=== PATIENT | female | born 1955 | race American Indian/Alaskan Native ===

== ENCOUNTER 2017-08-16 09:05 | Emergency (ER) | payer MEDICAID ==
[2017-08-16 09:56] LABS: BASO % 0.5 % (0.0-2.0); EOS # 0.1 K/uL (0.0-0.7); EOS % 1.1 % (0.0-4.0); HEMOGLOBIN 12.2 g/dL (11.0-16.0); LYMPH # 2.4 K/uL (1.0-4.3); MEAN CELL VOLUME 79.4 fL (81.0-99.0); MEAN CORPUSCULAR HEMOGLOBIN 26.2 pg (27.0-31.0); MEAN PLATELET VOLUME 8.5 fL (7.2-11.7); MONO # 0.8 K/uL (0.0-0.8); MONO % 11.8 % (0.0-10.0); NEUT # 3.1 K/uL (1.8-7.0); NEUT % 48.6 % (50.0-75.0); NRBC % 0.4 % (0.0-2.0); RBC 4.66 Mil/uL (3.80-5.20); RED CELL DISTRIBUTION WIDTH 15.4 % (11.5-14.5); WHITE BLOOD COUNT 6.4 K/uL (4.8-10.8)
[2017-08-16 10:14] LABS: ALB/GLOB RATIO 1.3 (1.0-2.1); ALBUMIN 4.4 g/dL (3.5-5.0); ALT/SGPT 46 U/L (9-52); AST/SGOT 42 U/L (14-36); BLOOD UREA NITROGEN 32 mg/dL (7-17); CALCIUM 10.4 mg/dl (8.6-10.4); GFR AFRICAN-AMERICAN > 60; GFR NON-AFRICAN AMERICAN > 60
[2017-08-16 11:17] VITALS: RESP 18
--- NOTE | 2017-08-16 13:27 | C.PDOC ---
History Of Present Illness 61 y/o female, recently arrive from [facility], presents to the ER complaining of pain and swelling to neck which has been present for the past 1 week. Patient states that she has associated difficulty swallowing and feeling uncomfortable with lying down because of the swelling. Patient states that she was diagnosed with bilateral enlarged thyroid nodules. She had an US done in [facility] but there were no results. She reports losing some weight over last few weeks. Denies having nausea, vomiting, fever, chills, diarrhea, and hair loss. of note, [place] of pain and swelling to neck. Time Seen by Provider: 08/16/17 09:26 Chief Complaint (Nursing): Back Pain History Per: Patient History/Exam Limitations: no limitations Onset/Duration Of Symptoms: Days Current Symptoms Are (Timing): Still Present Severity: Moderate Past Medical History Reviewed: Historical Data, Nursing Documentation, Vital Signs Vital Signs: Last Vital Signs Temp 98 F 08/16/17 13:42 Pulse 78 08/16/17 13:42 Resp 18 08/16/17 13:42 BP 136/72 08/16/17 13:42 Pulse Ox 96 08/16/17 16:51 - Medical History PMH: HTN, Hyperthyroidism Surgical History: No Surg Hx Family History: States: No Known Family Hx - Social History Hx Alcohol Use: No Hx Substance Use: No - Immunization History Hx Tetanus Toxoid Vaccination: No Hx Influenza Vaccination: Yes Hx Pneumococcal Vaccination: No Review Of Systems Except As Marked, All Systems Reviewed And Found Negative. Constitutional: Negative for: Fever, Chills Gastrointestinal: Negative for: Nausea, Vomiting, Diarrhea Musculoskeletal: Positive for: Neck Pain Skin: Positive for: Other (swelling to neck) Physical Exam - Physical Exam Appears: Non-toxic, No Acute Distress, Other (alert, cooperative, conversational ) Skin: Normal Color, Warm, Dry Head: Atraumatic, Normacephalic Eye(s): bilateral: Normal Inspection Ear(s): Bilateral: Normal Nose: Normal Oral Mucosa: Moist Tongue: Normal Appearing Throat: Other (large lobular thyroid - visible and palpable) Neck: Supple Chest: Symmetrical Cardiovascular: Rhythm Regular Respiratory: Normal Breath Sounds, No Rales, No Rhonchi, No Wheezing Gastrointestinal/Abdominal: Normal Exam, Soft, No Tenderness, No Guarding, No Rebound Extremity: Normal ROM Neurological/Psych: Oriented x3, Normal Speech ED Course And Treatment - Laboratory Results Result Diagrams: 08/16/17 09:51 08/16/17 09:51 O2 Sat by Pulse Oximetry: 96 (RA) Pulse Ox Interpretation: Normal - CT Scan/US US- Thyroid Other Rad Studies (CT/US): Read By Radiologist, Radiology Report Reviewed CT/US Interpretation: Thyroid ultrasound. History: Enlarged thyroid. Comparison: None available. Technique: Real-time sonography was performed through the thyroid. Findings: Right lobe: 7.4 x 4.1 x 5.0 centimeters. Enlarged. Heterogeneous echotexture. Increased flow. Multiple nodules: Upper pole solid echogenic nodule measuring 9 x 6 x 9 millimeters with a few punctate internal cystic foci. Upper pole solid echogenic nodule with a few punctate internal cystic foci measuring 1.3 x 0.7 x 1.1 centimeters. Midpole solid echogenic nodule with a few punctate internal cystic foci measuring 1.1 x 0.6 x 0.9 centimeters. Thyroid isthmus is not well delineated. The presumed isthmus measures approximately 1.4 centimeters. Heterogeneous echotexture. Increased flow. Left lobe: 9.0 x 4.6 x 5.0 centimeters. Heterogeneous echotexture. Enlarged. Increased flow. Multiple nodules: Midpole solid echogenic nodule with a few punctate internal cystic foci measuring 1.7 x 1.1 x 1.6 centimeters. Midpole solid/cystic nodule measuring 1.9 x 1.4 x 2.3 centimeters with associated echogenic calcifications. Midpole solid echogenic nodule measuring 1.4 x 1.9 x 1.5 centimeters with a few punctate internal cystic foci. Lower pole solid echogenic nodule with scattered internal cystic foci as well as peripheral echogenic rim like calcifications measuring 2.7 x 2.4 x 2.8 cm. Impression: Enlarged heterogeneous multinodular thyroid gland as described above. Medical Decision Making Medical Decision Making: Plan: --Labs --US- Thyroid Updates: US - Thyroid has been reviewed. Patient has been discharged and instructed to follow up in clinic for further endocrinology work up. Disposition Counseled Patient/Family Regarding: Studies Performed, Diagnosis, Need For Followup - Disposition Referrals: [facility] [Outside] Rachel Carlson MD [Staff Provider] - Disposition: HOME/ ROUTINE Disposition Time: 13:24 Condition: GUARDED Additional Instructions: Needs referral for endocrine clinic Instructions: Hyperthyroidism (Overactive Thyroid) Forms: [facility] (E[place]ian), General Discharge Instructions - POA Present On Arrival: None - Clinical Impression Clinical Impression: Hyperthyroidism, Thyroid nodule - Scribe Statement The provider has reviewed the documentation as recorded by the Scribe Ortiz Garcia Provider Attestation: All medical record entries made by the Scribe were at my direction and personally dictated by me. I have reviewed the chart and agree that the record accurately reflects my personal performance of the history, physical exam, medical decision making, and the department course for this patient. I have also personally directed, reviewed, and agree with the discharge instructions and disposition.
[2017-08-16 13:43] VITALS: BP 136/72; PULSE 78; TEMP 98
--- NOTE | 2017-08-16 13:55 | US ---
Thyroid ultrasound History: Enlarged thyroid. Comparison: None available. Technique: Real-time sonography was performed through the thyroid. Findings: Right lobe: 7.4 x 4.1 x 5.0 centimeters. Enlarged. Heterogeneous echotexture. Increased flow. Multiple nodules: Upper pole solid echogenic nodule measuring 9 x 6 x 9 millimeters with a few punctate internal cystic foci. Upper pole solid echogenic nodule with a few punctate internal cystic foci measuring 1.3 x 0.7 x 1.1 centimeters. Midpole solid echogenic nodule with a few punctate internal cystic foci measuring 1.1 x 0.6 x 0.9 centimeters. Thyroid isthmus is not well delineated. The presumed isthmus measures approximately 1.4 centimeters. Heterogeneous echotexture. Increased flow. Left lobe: 9.0 x 4.6 x 5.0 centimeters. Heterogeneous echotexture. Enlarged. Increased flow. Multiple nodules: Midpole solid echogenic nodule with a few punctate internal cystic foci measuring 1.7 x 1.1 x 1.6 centimeters. Midpole solid/cystic nodule measuring 1.9 x 1.4 x 2.3 centimeters with associated echogenic calcifications. Midpole solid echogenic nodule measuring 1.4 x 1.9 x 1.5 centimeters with a few punctate internal cystic foci. Lower pole solid echogenic nodule with scattered internal cystic foci as well as peripheral echogenic rim like calcifications measuring 2.7 x 2.4 x 2.8 cm. Impression: Enlarged heterogeneous multinodular thyroid gland as described above.
[2017-08-16 16:41] VITALS: O2SAT 96
== END 2017-08-16 13:43 | disposition home or self-care (01) ==
LOC: C.ER 09:05
DX: E05.20 Thyrotoxicosis with toxic multinodular goiter without thyrotoxic crisis or storm (principal); E04.1 Nontoxic single thyroid nodule; I10 Essential (primary) hypertension